=== PATIENT | female | born 2000 ===

== ENCOUNTER 2019-12-21 11:00 | Outpatient (CLI) | payer OTHER | END 2019-12-21 11:03 | disposition home or self-care (01) | LOC: RX STUDY 11:00 | DX: N70.11 Chronic salpingitis (principal) ==

== ENCOUNTER 2022-11-02 09:53 | Outpatient (CLI) | payer OTHER | END 2022-11-02 09:58 | disposition home or self-care (01) | LOC: RX STUDY 09:53 | DX: N70.91 Salpingitis, unspecified (principal) ==